=== PATIENT | male | born 1965 | race Caucasian/White ===

== ENCOUNTER 2024-04-16 12:18 | Emergency (ER) | payer OTHER, SELFPAY ==
[2024-04-16] VITALS (9 sets, daily range): BP systolic 119–171; BP diastolic 83–118; PULSE 106–114; RESP 16–24; TEMP 36.5–37.2; O2SAT 91–97; BMI 31.9
--- NOTE | ~2024-04-16 | XR_ITS ---
EXAMINATION: XR CHEST CLINICAL INFORMATION: sob COMPARISON: None available. TECHNIQUE: 2 views of the chest were obtained. FINDINGS: The heart is normal in size. The lungs are clear. There is no pleural effusion or pneumothorax. There is elevation of the right hemidiaphragm. There is no acute osseous abnormality. XR/XR chest 2V IMPRESSION: No acute cardiopulmonary disease. Electronically signed by: Nelson Brantley DO 04/16/2024 03:41 PM EST
--- NOTE | 2024-04-16 12:20 | ED_ITS ---
HPI - Asthma General Chief Complaint: Dyspnea Stated Complaint: asthma diff breathing Time Seen by Provider: 04/16/24 12:43 Source: patient Mode of arrival: ambulatory Limitations: no limitations History of Present Illness ED Provider: DR. Vargas HPI Narrative: 58-year-old male presented to the ED for evaluation of a difficulty breathing for the past 3 days, reports coughing with clear sputum, no fever, no chills, no sick contacts, no recent travel, patient is a former smoker gets episode of wheezing every now and then use inhaler this episode is not relieved by inhaler. patient lifts weight at the gym, patient also do 10-15 minutes cardio but lately he is not able because exertional dyspnea, has not noticed any weight gain or swelling of the lower extremities, last night patient had to sleep almost sitting because the difficulty breathing when he lays supine. No CP, no fever, no chills. Related Data Previous Rx's ?Medication ?Instructions ?Recorded albuterol sulfate 90 mcg/actuation 1 inh inhalation QID PRN shortness 04/16/24 aerosol inhaler of breath or wheezing #8.5 grams azithromycin 250 mg tablet See Rx Instructions PO .COMPLEX #6 04/16/24 (Zithromax Z-Theo) tabs prednisone 20 mg tablet 20 mg PO BID #10 tabs 04/16/24 Allergies Allergy/AdvReac Type Severity Reaction Status Date / Time No Known Allergies Allergy Verified 04/16/24 12:24 Review of Systems 2 Review of Systems: All other systems are reviewed and are negative Constitutional: Reports as per HPI and Reports no additional constitutional complaints Eyes: Reports as per HPI and Reports no additional eye complaints Reports system reviewed and no additional complaints, except as documented Cardiovascular: Reports as per HPI and Reports no additional cardiovascular complaints Respiratory: Reports as per HPI and Reports no additional respiratory complaints Gastrointestinal: Reports as per HPI and Reports no additional gastrointestinal complaints Genitourinary: Reports no additional female genitourinary complaints Musculoskeletal: Reports no additional musculoskeletal complaints Skin/Breast: Reports system reviewed and no additional complaints, except as docu Psychiatric: Reports no additional psychiatric complaints Endocrine: Reports no additional endocrine complaints Hematologic/Lymphatic: Reports no additional hematologic/lymphatic complaints Allergic/Immunologic: Reports no additional allergic/immunologic complaints Reports system reviewed and no additional complaints, except as documented and Reports Abnormal speech present [facility] Social History Social History Alcohol intake: current Alcohol intake frequency: a few times a week Smoked in Last 30 Days: No Use of substances other than those prescribed or required for medical reasons: Yes Substance Use Type: Marijuana Substance Use Frequency: Occasionally Advance Directives: No Advance Directives Information Provided: Yes Do you have a plan to hurt others: No Plan Physical Exam 2 Vital Signs: Vital Signs: Last Vital Signs Temp 97.9 F 04/16/24 13:18 Pulse 106 H 04/16/24 13:18 Resp 16 04/16/24 13:18 BP 119/85 04/16/24 13:18 Pulse Ox 94 04/16/24 13:18 O2 Del Method Room Air 04/16/24 13:18 BMI result Body Mass Index 31.9 Vital signs have been reviewed and appear to be correct. Blood pressure elevated. Heart rate normal. Respiratory rate normal. Temperature normal. Oxygen saturation normal. Appearance: Alert. Oriented X3. No acute distress. Head: Normal external exam. Normocephalic. Atraumatic. No Casarez signs noted. No raccoon eyes noted Eyes: PERRLA. EOMI. Conjunctiva and sclera normal. Eyelids normal. ENT: TM's Normal. Pharynx normal. Uvula midline. Moist mucous membranes. No trismus noted. No drooling noted. No muffled voice noted. Neck: Normal inspection. Neck supple. FROM. No adenopathy. Thyroid Normal. No meningeal signs. No neck mass noted. CVS: Normal heart rate and rhythm. Heart sound normal. No murmurs noted. Pulses normal throughout. Respiratory: No respiratory distress. Diminished breathing sounds bilaterally, expiratory wheezing, prolonged expiration. Chest nontender. No accessory muscle usage noted or decreased air movement noted. Abdomen: Soft and nontender. Bowel sounds normal in all 4 quadrants. No distention noted. No organomegaly noted. No visible injury noted. Back: No CVA tenderness. Full range of motion noted. Skin: Skin warm and dry. Normal skin color. Normal skin turgor. No rashes/lesions/lacerations noted. Extremities: No lower extremity edema. Extremities exhibit normal range of motion. Extremities nontender. Neuro: Oriented X 3. Cranial nerve exam: II-XII are grossly intact No motor deficit. No sensory deficit. Reflexes normal. Course Course Course Narrative: This is a Rapid Medical Exam performed in triage by Lexus Valadez PA-C. Full HPI, ROS and PE to be performed by primary ED provider. 58-year-old male with a past medical history of asthma, HTN, PTX, presenting to the ED c/o headache, productive cough, SOB, orthopnea & exertional dyspnea x3 days. Has been using inhaler w/some relief. denies fever, travel, LE edema, hx clots, AC use PE: satting 92% on RA, HTNsive 171/106, tachycardic 106, diffuse exp wheeze Plan: viral testing, CXR, EKG, labs, ED bronch protocol Reevaluation(s) Reevaluation #1: patient feels much improved, vital sign is stable, O2 sat is 94%, chest x-ray is unremarkable, BMP is within normal. We will start the patient Z-Theo, prednisone x5 days, and albuterol inhaler p.r.n. follow-up with PCP. Time: 14:19 Medications Administered Discontinued Medications Generic Name Dose Route Start Last Admin Trade Name Freq PRN Reason Stop Dose Admin Ceftriaxone Sodium 1 gm 04/16/24 12:59 04/16/24 13:18 Ceftriaxone Sodium 1 Gm Vial IVPUSH 04/16/24 13:00 1 gm ONCE ONE Administration Albuterol Sulfate 5 mg/ 0 mg 04/16/24 12:36 04/16/24 12:39 Albuterol/Ipratropium 3 ml INHALE 04/16/24 12:37 7.5 each ONCE ONE Administration Furosemide 20 mg 04/16/24 12:59 04/16/24 13:16 Furosemide 20 Mg/2 Ml Vial IVPUSH 04/16/24 13:00 20 mg ONCE ONE Administration Protocol Methylprednisolone Sodium Succinate 125 mg 04/16/24 12:59 04/16/24 13:15 Methylprednisolone Sod Succ 125 Mg/2 Ml Vial IVPUSH 04/16/24 13:00 125 mg ONCE ONE Administration Medical Decision Making Differential Diagnosis Differential Diagnoses: The differential diagnosis associated with the presentation includes ( Pneumonia, pneumothorax, pleural effusion, CHF, CVA, hypoxia, electrolyte derangement, severe anemia.) Admission/Observation Consideration of admission/observation: Escalation of care including admission/observation considered Lab Data MDM Lab Attestation statement: I reviewed the patient's lab results. 04/16/24 12:43 04/16/24 12:43 Labs: Lab Results 04/16/24 04/16/24 Range/Units 12:43 13:11 WBC 9.4 (4.8-10.8) X10*3/uL RBC 5.50 (4.60-5.80) X10*6/uL Hgb 16.9 (14.0-18.0) g/dl Hct 49.4 (42.0-52.0) % MCV 89.8 (80.0-98.0) fL MCH 30.7 (27.0-33.0) pg MCHC 34.2 (31.0-36.0) g/dl RDW 12.7 (11.0-16.0) % Plt Count 454 H (160-400) X10*3/uL MPV 9.0 L (9.4-12.4) fL Immature Gran % (Auto) 0.6 H (0.0-0.4) % Neut % (Auto) 58.2 (45-73) % Lymph % (Auto) 21.4 (20-40) % [place] % (Auto) 12.5 H (2-11) % Eos % (Auto) 6.0 H (0-4) % Baso % (Auto) 1.3 (0-2) % Lymph # (Auto) 2.0 (1.2-4.9) X10*3/uL [place] # (Auto) 1.2 (0.1-1.2) X10*3/uL Eos # (Auto) 0.6 H (0.0-0.4) X10*3/uL Baso # (Auto) 0.1 (0.0-0.2) X10*3/uL Abs Immat Gran (auto) 0.06 H (0.00-0.03) X10*3/uL Absolute Neuts (auto) 5.4 (2.0-8.3) x10*3/uL Absolute Nucleated RBC 0.000 (0.0-0.012) X10*3/uL Nucleated RBC % (auto) 0.0 (0.0-0.2) /100WBC PT 11.2 (10.9-12.4) SEC INR 1.0 (0.9-1.1) Sodium 138 (135-145) mmol/L Potassium 4.3 (3.3-5.1) mmol/L Chloride 100 (96-108) mmol/L Carbon Dioxide 27 (22-29) mmol/L Anion Gap 15 (12-20) BUN 12 (9-16) mg/dL Creatinine 0.84 (0.5-1.4) mg/dL Estim Creat Clear Calc 114.6 Estimated GFR > 60 Random Glucose 108 (60-115) mg/dL Lactic Acid 1.1 (0.5-2.0) mmol/L Calcium 9.7 (8.4-10.2) mg/dL Magnesium 2.1 (1.6-2.6) mg/dL Total Bilirubin 0.4 (0.0-1.0) mg/dL Direct Bilirubin 0.1 (0.0-0.5) mg/dL AST 22 (5-37) U/L ALT 34 (0-40) U/L Alkaline Phosphatase 82 (39-117) U/L Troponin I High Sens < 2.7 (<3.5-35.0) ng/L B-Natriuretic Peptide < 10 (<100) pg/mL Total Protein 8.1 H (6.5-8.0) g/dL Albumin 4.8 (3.5-5.0) g/dL Influenza Type A (PCR) NEGATIVE (Negative) Influenza Type B (PCR) NEGATIVE (Negative) RSV RNA Qual (PCR) NEGATIVE (Negative) SARS-CoV-2 RNA (RT-PCR) NEGATIVE (Negative) Independent Interpretation I performed an independent interpretation of an: Plain X-Ray ( chest: No acute intrathoracic pathology.) Radiology Impression Discussion of test interpretation with radiology: I have reviewed the radiologist's reading. Discharge Plan Discharge Clinical Impression: Bronchopneumonia Patient Disposition: Home, Self-Care Instructions: Acute Bronchitis (ED) Prescriptions: New prednisone 20 mg tablet 20 mg PO BID Qty: 10 0RF azithromycin [Zithromax Z-Theo] 250 mg tablet See Rx Instructions .ROUTE .COMPLEX Qty: 6 0RF Rx Instructions: For 250 mg dose pack: take 500 mg today (day 1), then 250 mg for 4 days (days 2-5) albuterol sulfate 90 mcg/actuation HFA aerosol inhaler 1 inh inhalation QID PRN (Reason: shortness of breath or wheezing) Qty: 8.5 0RF Print Language: Japanese
--- NOTE | 2024-04-16 12:22 | ECG_ITS ---
Test Reason : SOB Blood Pressure : / mmHG Vent. Rate : 112 BPM Atrial Rate : 112 BPM P-R Int : 136 ms QRS Dur : 082 ms QT Int : 330 ms P-R-T Axes : 083 078 038 degrees QTc Int : 450 ms Sinus tachycardia Otherwise normal ECG No previous ECGs available Referred By: Lexus Valadez Electronically Signed By:FRANCINE ALCAZAR MD
[2024-04-16] MEDS: Albuterol Sulfate 5 MG, Albuterol/Iprat 2.5/0.5MG 3 ML 3 ML INHALE (12:39)
--- NOTE | 2024-04-16 12:47 | PC.NURSE ---
a&ox4. sinus tachycardic on the monitoring tech - HR between 100-120bpm. hypertensive - pt reports taking BP medication this am. 91% on RA. hx of asthma. pt denies being O2 dependent baseline. pt presents to the ED c/o dyspnea, productive cough w/ clear sputum, orthopnea x 3-4 days. pt reports using inhalers at home w/ minimal relief. pt reports losing one rescue inhaler during recent move which has not been beneficial. pt c/o increased wob. sob/wob noted. audible wheezing noted. wheezing noted throughout upon auscultation. pt positioned upright to promote patent airway. 20gIV placed in the left AC - labs obtained/sent to lab. ekg performed by tech. pt currently receiving breathing treatment via RT - effectiveness pending. pt waiting for xray to be completed. plan of care ongoing. call chen placed within reach.
[2024-04-16 12:48] LABS: MANUAL DIFF FLAG NO
[2024-04-16 12:53] LABS: Basophils Absolute Auto 0.1 X10*3/uL (0.0-0.2); Basophils Percent Auto 1.3 % (0-2); Eosinophils Absolute Auto 0.6 X10*3/uL (0.0-0.4); Hematocrit 49.4 % (42.0-52.0); Hemoglobin 16.9 g/dl (14.0-18.0); Imm Gran Abs Auto 0.06 X10*3/uL (0.00-0.03); Imm Gran Pct Auto 0.6 % (0.0-0.4); Lymphocytes Percent Auto 21.4 % (20-40); Mean Corpuscular HGB Conc 34.2 g/dl (31.0-36.0); Mean Corpuscular Hemoglobin 30.7 pg (27.0-33.0); Mean Corpuscular Volume 89.8 fL (80.0-98.0); Monocytes Absolute Auto 1.2 X10*3/uL (0.1-1.2); Monocytes Percent Auto 12.5 % (2-11); Neutrophils Absolute Auto 5.4 x10*3/uL (2.0-8.3); Neutrophils Percent Auto 58.2 % (45-73); Platelet Count 454 X10*3/uL (160-400); Red Cell Distribution Width 12.7 % (11.0-16.0); White Blood Count 9.4 X10*3/uL (4.8-10.8)
[2024-04-16 12:59] LABS: Prothrombin Time 11.2 SEC (10.9-12.4)
--- NOTE | 2024-04-16 13:00 | PC.NURSE ---
ambulatory O2 trial performed by tech s/p breathing treatment via RT - SPO2 ranged between 93%-95% on RA. no sob/wob noted. respirations remain even/unlabored throughout trial.
[2024-04-16 13:10] LABS: B Type Natriuretic Peptide < 10 pg/mL (<100)
[2024-04-16 13:15] LABS: Albumin Level 4.8 g/dL (3.5-5.0); Alkaline Phosphatase 82 U/L (39-117); Anion Gap 15 (12-20); Aspartate Amino Transferase 22 U/L (5-37); Bilirubin Direct 0.1 mg/dL (0.0-0.5); Bilirubin Total 0.4 mg/dL (0.0-1.0); Blood Urea Nitrogen 12 mg/dL (9-16); Calcium 9.7 mg/dL (8.4-10.2); Carbon Dioxide 27 mmol/L (22-29); Chloride 100 mmol/L (96-108); Creatinine Clr Calc Pharmacy 114.6; Estimated Glomerular Filt Rate > 60; Glucose Random 108 mg/dL (60-115); Magnesium 2.1 mg/dL (1.6-2.6); Potassium 4.3 mmol/L (3.3-5.1); Sodium 138 mmol/L (135-145); Total Protein 8.1 g/dL (6.5-8.0)
[2024-04-16] MEDS: methylPREDNISolone Sod Succ 125 MG/2 ML VIAL IVPUSH (13:15)
[2024-04-16 13:16] LABS: Troponin-I High Sensitivity < 2.7 ng/L (<3.5-35.0)
[2024-04-16] MEDS: Furosemide 20 MG/2 ML VIAL IVPUSH (13:16)
[2024-04-16] MEDS: cefTRIAXone sodium 1 GM VIAL IVPUSH (13:18)
--- NOTE | 2024-04-16 13:28 | PC.NURSE ---
cultures obtained/sent to lab. medication administered per provider order. pt waiting for xray to be taken at this time.
[2024-04-16 13:34] LABS: Lactic Acid 1.1 mmol/L (0.5-2.0)
[2024-04-16 13:37] LABS: Alanine Aminotransferase 34 U/L (0-40)
[2024-04-16 13:45] LABS: Influenza A PCR NEGATIVE (Negative); Influenza B PCR NEGATIVE (Negative); Resp Syncy Virus RNA Qual PCR NEGATIVE (Negative); SARS COV2 PCR INHOUSE NEGATIVE (Negative)
--- NOTE | 2024-04-16 15:56 | PC.NURSE ---
notified/aware of multiple reads of hypertension and being tachycardic. pt remains asymptomatic. denies chest pain/palpitations. pt no longer feeling sob s/p multiple interventions. provider ok w/ vital signs prior to d/c.
== END 2024-04-16 16:01 | disposition home or self-care (01) ==
PROVIDERS: Physician Assistant; Emergency Provider Emergency Medicine; PCP Internal Medicine
DX: J18.0 Bronchopneumonia, unspecified organism (principal); Z03.818 Encounter for observation for suspected exposure to other biological agents ruled out; R00.0 Tachycardia, unspecified; R06.00 Dyspnea, unspecified; R06.02 Shortness of breath; R05.9 Cough, unspecified; R51.9 Headache, unspecified; I10 Essential (primary) hypertension; Z87.891 Personal history of nicotine dependence
CPT/HCPCS: 0241U; 36415; 71046; 80048; 80076; 83605; 83735; 83880; 84484; 85025; 85610; 87040; 93005; 94640; 96374; 96375; 99284; 99285; J0696; J1940; J2919

== ENCOUNTER → 2024-04-16 12:22 | Outpatient (BNV) | payer OTHER, SELFPAY | PROVIDERS: Emergency Provider Emergency Medicine; PCP Internal Medicine; Visit Provider Internal Medicine Cardiovascular Disease | DX: R06.02 Shortness of breath (principal) | CPT/HCPCS: 93010 ==

== ENCOUNTER 2024-11-14 19:27 | Emergency (ER) | payer OTHER, SELFPAY ==
--- NOTE | ~2024-11-14 | CT_ITS ---
CLINICAL HISTORY: LLQ pain CT abdomen and pelvis with contrast Comparison: None provided Findings: The lung bases are clear. The gallbladder is within normal limits. No biliary ductal dilatation. The liver, spleen and pancreas are unremarkable. Adrenal glands are normal. Enhancement of bilateral kidneys. No ureteral stones with no hydroureter. Slight prominence of bilateral urinary pelvis. No hydronephrosis. Minimal bilateral nonspecific perinephric stranding. No bowel obstruction, pneumoperitoneum, or pneumatosis. Appendix not identified. No pericecal inflammatory changes. No free fluid. No loculated fluid collection. Urinary bladder and prostate within normal limits. Atherosclerotic vascular disease. No aneurysm of the abdominal aorta. Small bilateral fat containing inguinal hernias. No acute fracture. Degenerative changes in the lumbar spine most significantly involving L5-S1. IMPRESSION: 1. No acute findings. 2. Nonacute findings as described. This document has been electronically signed by: Sheri Mary MD on 11/15/2024 00:53:37
[2024-11-14 19:41] VITALS: BP 173/102; PULSE 86; RESP 20; TEMP 36.8; O2SAT 96; BMI 31.9
--- NOTE | 2024-11-14 19:46 | ED.ABDPAIN ---
HPI - Abdominal Pain General Chief Complaint: Abdominal Pain Stated Complaint: abd pain over a day Time Seen by Provider: 11/14/24 23:37 Source: patient, RN notes reviewed and old records reviewed Mode of arrival: ambulatory Limitations: no limitations History of Present Illness ED Provider: Benjamin PANDA narrative: 59-year-old male presents for evaluation of left-sided abdominal pain. His symptoms started last night, about 24 hours ago. His pain is an 8/10. He denies any nausea vomiting, diarrhea. He reports that he had a bowel movement yesterday that was smaller than normal. He also reports he is passing gas but less than normal he has a previous appendectomy. Denies any urinary symptoms. Denies any fevers, chills pain Denies any chest pain Related Data Previous Rx's ?Medication ?Instructions ?Recorded albuterol sulfate 90 mcg/actuation 1 inh inhalation QID PRN shortness 04/16/24 aerosol inhaler of breath or wheezing #8.5 grams azithromycin 250 mg tablet See Rx Instructions PO .COMPLEX #6 04/16/24 (Zithromax Z-Theo) tabs prednisone 20 mg tablet 20 mg PO BID #10 tabs 04/16/24 Allergies Allergy/AdvReac Type Severity Reaction Status Date / Time No Known Allergies Allergy Verified 11/14/24 19:43 Review of Systems Constitutional: Denies body ache(s), Denies chills and Denies fever(s) Denies dizziness Cardiovascular: Denies chest pain and Denies dyspnea on exertion Respiratory: Denies cough and Denies dyspnea on exertion Gastrointestinal: Reports abdominal pain, Denies nausea and Denies vomiting Genitourinary: Denies dysuria and Denies flank pain Musculoskeletal: Denies back pain Skin/Breast: Denies rash Denies dizziness Psychiatric: Denies anxiety [facility] [place] Social History Social History Alcohol intake: current Alcohol intake frequency: a few times a week Alcohol type: hard liquor Smoked in Last 30 Days: No Use of substances other than those prescribed or required for medical reasons: Yes Substance Use Type: Marijuana Advance Directives: No Advance Directives Information Provided: Yes Physical Exam ED Vital Signs: Vital Signs - 24 hr 11/14/24 19:41 11/14/24 21:53 11/14/24 23:01 Temperature 98.2 F 98.2 F 98.4 F Pulse Rate 86 82 91 Respiratory Rate 20 22 H 16 Blood Pressure 173/102 H 168/105 H 192/114 H Pulse Oximetry 96 97 96 Oxygen Delivery Method Room Air Room Air Room Air 11/15/24 00:06 11/15/24 00:46 Temperature Pulse Rate 84 85 Respiratory Rate 16 16 Blood Pressure 154/100 H 163/105 H Pulse Oximetry 95 96 Oxygen Delivery Method Room Air Room Air BMI result Body Mass Index 31.9 Const General: healthy appearing, comfortable, no acute distress, alert and awake Nutritional Appearance: well nourished Orientation/consciousness: patient oriented x3 HENMT Head: Yes normocephalic and Yes atraumatic Eyes Eyelids: Yes eyelids normal Conjunctivae: conjunctivae normal Sclerae: sclerae normal Corneas: corneas normal Pupils: Equal, round and reactive pupils present EOM: EOMs intact bilaterally Neck Neck: Yes full ROM Resp Effort & Inspection: normal respiratory effort, able to speak in complete sentences and not labored Cardio Rate: regular rate Rhythm: regular rhythm GI Palpation (GI): Soft to palpation, not firm, Tenderness to palpation present (GI) in the LLQ and Guarding due to palpation present (GI) in the LLQ Skin General skin exam: no rashes or lesions noted and elasticity normal Neuro General: patient oriented x3 Cranial nerves: Yes Equal, round and reactive pupils present and Yes Bilaterally intact EOM present Cognition (Neuro): normal cognition Extrem Other: Moving all extremities well without any obvious deformities Course Course Course Narrative: This is an RME: Additional HPI, ROS, PE not included below will be deferred to primary provider. RME assessment and note performed by: Dione Randolph PA-C This is [id number]-male, with a history of hypertension, who presents to the ER with concerns for LUQ pain since last night. No nausea, vomiting or diarrhea. No other abdominal surgeries. Last bowel movement was yesterday. Still passing gas. History of appendectomy, no other abdominal surgeries Plan:Labs, UA, further ER eval needed Medical Decision Making Medical Decision Making MDM Narrative: 59-year-old male with past medical history significant for obesity, hypertension presents for evaluation of abdominal pain. He is status post appendectomy. The triage note reports left upper quadrant abdominal pain, however on my exam the pain is more left lower quadrant and tenderness with the left lower quadrant. The patient is guarding. Given the location, I have a high suspicion for diverticulitis. A bowel obstruction is favored to be less likely as the patient reports passing gas. Less likely obstructive uropathy as the patient's urinalysis is clear and he has no symptoms. No fevers or chills. Constipation is also in the differential. we will get a CT scan of the abdomen pelvis given the patient's level of discomfort Differential Diagnosis Differential Diagnoses: The differential diagnosis associated with the presentation includes As above Lab Data MDM Lab Attestation statement: I reviewed the patient's lab results. no leukocytosis or anemia. Normal platelet count. No electrolyte abnormalities warranting intervention. 11/14/24 20:04 11/14/24 20:04 Labs: Lab Results 11/14/24 Range/Units 20:04 WBC 8.5 (4.8-10.8) X10*3/uL RBC 5.41 (4.60-5.80) X10*6/uL Hgb 16.8 (14.0-18.0) g/dl Hct 48.4 (42.0-52.0) % MCV 89.5 (80.0-98.0) fL MCH 31.1 (27.0-33.0) pg MCHC 34.7 (31.0-36.0) g/dl RDW 12.8 (11.0-16.0) % Plt Count 375 (160-400) X10*3/uL MPV 9.0 L (9.4-12.4) fL Immature Gran % (Auto) 0.7 H (0.0-0.4) % Neut % (Auto) 57.8 (45-73) % Lymph % (Auto) 24.9 (20-40) % [place] % (Auto) 13.8 H (2-11) % Eos % (Auto) 1.9 (0-4) % Baso % (Auto) 0.9 (0-2) % Lymph # (Auto) 2.1 (1.2-4.9) X10*3/uL [place] # (Auto) 1.2 (0.1-1.2) X10*3/uL Eos # (Auto) 0.2 (0.0-0.4) X10*3/uL Baso # (Auto) 0.1 (0.0-0.2) X10*3/uL Abs Immat Gran (auto) 0.06 H (0.00-0.03) X10*3/uL Absolute Neuts (auto) 4.9 (2.0-8.3) x10*3/uL Absolute Nucleated RBC 0.000 (0.0-0.012) X10*3/uL Nucleated RBC % (auto) 0.0 (0.0-0.2) /100WBC Sodium 137 (135-145) mmol/L Potassium 4.0 (3.3-5.1) mmol/L Chloride 103 (96-108) mmol/L Carbon Dioxide 25 (22-29) mmol/L Anion Gap 13 (12-20) BUN 13 (9-16) mg/dL Creatinine 0.71 (0.5-1.4) mg/dL Estim Creat Clear Calc 133.9 Estimated GFR > 60 Random Glucose 105 (60-115) mg/dL Calcium 10.3 H D (8.4-10.2) mg/dL Total Bilirubin 0.6 (0.0-1.0) mg/dL AST 24 (5-37) U/L ALT 38 (0-40) U/L Alkaline Phosphatase 76 (39-117) U/L Total Protein 7.8 (6.5-8.0) g/dL Albumin 5.0 (3.5-5.0) g/dL Lipase 24 (8-78) U/L Urine Color Yellow Urine Appearance Clear Urine pH 8.5 (5.0-9.0) Ur Specific [place] 1.010 (1.005-1.025) Urine Protein Negative (Neg-Trace) mg/dL Urine Glucose (UA) Negative (Negative) mg/dL Urine Ketones Negative (Negative) mg/dL Urine Blood Negative (Negative) Urine Nitrite Negative (Negative) Ur Leukocyte Esterase Negative (Negative) Urine RBC 0-2 (0-2) /HPF Urine WBC 0-5 (0-5) /HPF Ur Squamous Epith Cells 0-2 (0-2) /HPF Urine Bacteria None Seen (None Seen) Hyaline Casts 0-2 (0-2) /LPF Independent Interpretation I performed an independent interpretation of an: CT Scan Interpretation: possible mild enteritis Radiology Impression Discussion of test interpretation with radiology: I have reviewed the radiologist's reading. Radiologist Impression: Findings: The lung bases are clear. The gallbladder is within normal limits. No biliary ductal dilatation. The liver, spleen and pancreas are unremarkable. Adrenal glands are normal. Enhancement of bilateral kidneys. No ureteral stones with no hydroureter. Slight prominence of bilateral urinary pelvis. No hydronephrosis. Minimal bilateral nonspecific perinephric stranding. No bowel obstruction, pneumoperitoneum, or pneumatosis. Appendix not identified. No pericecal inflammatory changes. No free fluid. No loculated fluid collection. Urinary bladder and prostate within normal limits. Atherosclerotic vascular disease. No aneurysm of the abdominal aorta. Small bilateral fat containing inguinal hernias. No acute fracture. Degenerative changes in the lumbar spine most significantly involving L5-S1. IMPRESSION: 1. No acute findings. 2. Nonacute findings as described. This document has been electronically signed by: Sheri Mary MD on 11/15/2024 00:53:37 Medications Administered Discontinued Medications Generic Name Dose Route Start Last Admin Trade Name Freq PRN Reason Stop Dose Admin Sodium Chloride 1,000 mls @ 999 mls/hr 11/14/24 23:45 11/15/24 01:16 Ns IV 11/15/24 00:45 Infused .Q1H1M INOCENCIO Infusion Iohexol 85 ml 11/14/24 23:52 11/14/24 23:53 Iohexol 350 Mg/Ml 100 Ml Infus..Btl IV 11/14/24 23:53 85 ml ONCE ONE Administration Morphine Sulfate 4 mg 11/14/24 23:42 11/14/24 23:55 Morphine Sulfate 4 Mg/Ml Cartridge IVPUSH 11/14/24 23:43 4 mg ONCE ONE Administration Protocol Ondansetron HCl 4 mg 11/14/24 23:42 11/14/24 23:55 Ondansetron Hcl 4 Mg/2 Ml Vial IVPUSH 11/14/24 23:43 4 mg ONCE ONE Administration Discharge Plan Discharge Clinical Impression: Abdominal pain Patient Disposition: Home, Self-Care Instructions: Abdominal Pain (ED) Additional Instructions: your CT scan did not show any concerning findings to explain your pain. You do not have a bowel obstruction or any signs of bacterial infection. You may use Gas-X for continued pain. Return for new or worsening symptoms, especially if you develop chest pain. Follow-up with your primary doctor, return for new or worsening symptoms Prescriptions: No Action prednisone 20 mg tablet 20 mg PO BID Qty: 10 0RF azithromycin [Zithromax Z-Theo] 250 mg tablet See Rx Instructions .ROUTE .COMPLEX Qty: 6 0RF Rx Instructions: For 250 mg dose pack: take 500 mg today (day 1), then 250 mg for 4 days (days 2-5) albuterol sulfate 90 mcg/actuation HFA aerosol inhaler 1 inh inhalation QID PRN (Reason: shortness of breath or wheezing) Qty: 8.5 0RF Print Language: Surinamese
[2024-11-14 20:11] LABS: MANUAL DIFF FLAG NO
[2024-11-14 20:12] LABS: Basophils Absolute Auto 0.1 X10*3/uL (0.0-0.2); Basophils Percent Auto 0.9 % (0-2); Eosinophils Absolute Auto 0.2 X10*3/uL (0.0-0.4); Eosinophils Percent Auto 1.9 % (0-4); Hematocrit 48.4 % (42.0-52.0); Hemoglobin 16.8 g/dl (14.0-18.0); Imm Gran Abs Auto 0.06 X10*3/uL (0.00-0.03); Imm Gran Pct Auto 0.7 % (0.0-0.4); Lymphocytes Absolute Auto 2.1 X10*3/uL (1.2-4.9); Lymphocytes Percent Auto 24.9 % (20-40); Mean Corpuscular HGB Conc 34.7 g/dl (31.0-36.0); Mean Corpuscular Hemoglobin 31.1 pg (27.0-33.0); Mean Corpuscular Volume 89.5 fL (80.0-98.0); Monocytes Absolute Auto 1.2 X10*3/uL (0.1-1.2); Monocytes Percent Auto 13.8 % (2-11); Neutrophils Absolute Auto 4.9 x10*3/uL (2.0-8.3); Neutrophils Percent Auto 57.8 % (45-73); Platelet Count 375 X10*3/uL (160-400); Red Blood Count 5.41 X10*6/uL (4.60-5.80); Red Cell Distribution Width 12.8 % (11.0-16.0); White Blood Count 8.5 X10*3/uL (4.8-10.8)
[2024-11-14 20:14] LABS: Appearance Urine Clear; Color Urine Yellow; Glucose Urine UA Negative (Negative); Leukocyte Esterase Urine Negative (Negative); Nitrite Urine Negative (Negative); PH 8.5 (5.0-9.0); Urine Blood Negative (Negative); Urine Ketones Negative (Negative); Urine Protein Negative (Neg-Trace)
[2024-11-14 20:16] LABS: Bacteria Urine None Seen (None Seen); Hyaline Casts Urine 0-2 /LPF (0-2); RBC Urine 0-2 /HPF (0-2); Squamous Epithelial Cell Urine 0-2 /HPF (0-2); WBC Urine 0-5 /HPF (0-5)
[2024-11-14 20:25] LABS: Alkaline Phosphatase 76 U/L (39-117); Anion Gap 13 (12-20); Aspartate Amino Transferase 24 U/L (5-37); Bilirubin Total 0.6 mg/dL (0.0-1.0); Blood Urea Nitrogen 13 mg/dL (9-16); Calcium 10.3 mg/dL (8.4-10.2); Carbon Dioxide 25 mmol/L (22-29); Chloride 103 mmol/L (96-108); Creatinine Clr Calc Pharmacy 133.9; Estimated Glomerular Filt Rate > 60; Glucose Random 105 mg/dL (60-115); Lipase 24 U/L (8-78); Sodium 137 mmol/L (135-145); Total Protein 7.8 g/dL (6.5-8.0)
[2024-11-14 20:38] LABS: Alanine Aminotransferase 38 U/L (0-40)
[2024-11-14 21:53] VITALS: BP 168/105; PULSE 82; RESP 22; TEMP 36.8; O2SAT 97
[2024-11-14 23:01] VITALS: BP 192/114; PULSE 91; RESP 16; TEMP 36.9; O2SAT 96
[2024-11-14] MEDS: iohexoL 350 MG/ML 100 ML INFUS..BTL 85 ML IV (23:53)
[2024-11-14] MEDS: 0.9 % Sodium Chloride 1,000 ML 999 ML IV (23:54)
[2024-11-14] MEDS: ondansetron HCL 4 MG/2 ML VIAL IVPUSH (23:55)
[2024-11-14] MEDS: Morphine Sulfate 4 MG/ML CARTRIDGE IVPUSH (23:55)
[2024-11-15 00:06] VITALS: BP 154/100; PULSE 84; RESP 16; O2SAT 95
[2024-11-15 00:46] VITALS: BP 163/105; PULSE 85; RESP 16; O2SAT 96
--- NOTE | 2024-11-15 01:10 | ECG_ITS ---
Test Reason : abdominal pain Blood Pressure : */* mmHG Vent. Rate : 82 BPM Atrial Rate : 82 BPM P-R Int : 126 ms QRS Dur : 108 ms QT Int : 404 ms P-R-T Axes : 65 74 77 degrees QTcB Int : 472 ms Normal sinus rhythm Normal ECG When compared with ECG of 16-Apr-2024 12:35, No significant changes seen Referred By: Jasen Alexander Electronically Signed By: ASYA CARDENAS
[2024-11-15 01:35] VITALS: BP 163/105; PULSE 85; RESP 16; TEMP 37.2; O2SAT 96
== END 2024-11-15 01:43 | disposition home or self-care (01) ==
PROVIDERS: Emergency Provider Emergency Medicine; PCP Internal Medicine
DX: R10.32 Left lower quadrant pain (principal); R10.812 Left upper quadrant abdominal tenderness; R10.12 Left upper quadrant pain; I10 Essential (primary) hypertension; Z79.899 Other long term (current) drug therapy
CPT/HCPCS: 36415; 74177; 80053; 81001; 83690; 85025; 93005; 96361; 96374; 96375; 99284; J2270; J2405; Q9967

== ENCOUNTER → 2024-11-14 23:42 | Outpatient (BNV) | payer OTHER, SELFPAY | PROVIDERS: Emergency Provider Emergency Medicine; PCP Internal Medicine; Visit Provider Specialist | DX: R10.32 Left lower quadrant pain (principal) | CPT/HCPCS: 74177 ==

== ENCOUNTER → 2024-11-15 01:10 | Outpatient (BNV) | payer OTHER, SELFPAY | PROVIDERS: Emergency Provider Emergency Medicine; PCP Internal Medicine; Visit Provider Internal Medicine | DX: R10.9 Unspecified abdominal pain (principal) | CPT/HCPCS: 93010 ==